=== PATIENT | male | born 1960 | race Caucasian/White ===

== ENCOUNTER 2020-08-31 16:45 | Emergency (ER) | payer OTHER ==
[~2020-08-31] VITALS: Ht 167.6 cm; Wt 108.9 kg
[2020-08-31 17:01] VITALS: Ht 167.6 cm; Wt 108.9 kg
[2020-08-31 18:41] VITALS: BP 130/81
== END 2020-08-31 18:41 | disposition home or self-care (01) ==
LOC: ED 16:45
DX: S83.91XA Sprain of unspecified site of right knee, initial encounter (principal); J44.9 Chronic obstructive pulmonary disease, unspecified; Z98.890 Other specified postprocedural states; X58.XXXA Exposure to other specified factors, initial encounter; Y93.89 Activity, other specified; Y92.89 Other specified places as the place of occurrence of the external cause; Y99.8 Other external cause status
CPT/HCPCS: J1885